=== PATIENT | female | born 1950 | race Caucasian/White ===

== ENCOUNTER 2016-06-23 11:17 | Emergency (ER) | payer BC, MEDICAID ==
[~2016-06-23] VITALS: Ht 149.9 cm; Wt 60.0 kg
[2016-06-23 12:45] LABS: CHLORIDE 107 mEq/L (98-107); INDEX HEMOLYSI 1 (1-3); INDEX ICTERIC 1 (1-4); INDEX LIPEMIC 1 (1-3)
[2016-06-23 12:50] LABS: ALBUMIN 3.9 g/dL (3.4-5.0); CALCIUM 8.8 mg/dL (8.5-10.1); UREA NITROGEN BLOOD 16 mg/dL (7-21)
[2016-06-23 12:56] LABS: ALANINE AMINOTRANSFERASE 48 IU/L (13-61); ANION GAP 12; CARBON DIOXIDE 26 mEq/L (21-32); eGFR > 60 mL/min (>60)
[2016-06-23] MEDS ORDERED: ACYCLOVIR 400 MG TABLET PO ONE (13:00)
[2016-06-23] MEDS ORDERED: PREDNISONE 20MG TABLET PO ONE (13:00)
[2016-06-23 13:07] LABS: BASOPHILS % 0.4 % (0.0-2.0); EOSINOPHILS % 1.8 % (0.0-5.0); HEMATOCRIT. 39.9 % (36.0-48.0); HEMOGLOBIN. 13.7 g/dL (12.0-16.0); LYMPHOCYTES % 31.4 % (20.0-50.0); MEAN CORPUSCULAR HEMOGLOBIN 32.5 pg (28.0-32.0); MEAN CORPUSCULAR HGB CONC 34.3 g/dL (31.0-37.0); MEAN CORPUSCULAR VOLUME 94.8 fL (81.0-99.0); MEAN PLATELET VOLUME 9.3 fl (7.4-10.4); MONOCYTES % 7.8 % (2.0-8.0); NEUTROPHILS % 58.6 % (40.0-76.0); PLATELET 236 x1000/uL (130-400); RED BLOOD CELL COUNT 4.21 mill/uL (4.2-5.4); RED CELL DISTRIBUTION WIDTH 13.4 % (11.6-14.6); WHITE BLOOD COUNT 7.1 x1000/uL (4.5-11.0)
[2016-06-23 14:28] VITALS: BP 131/73
== END 2016-06-23 14:29 | disposition home or self-care (01) ==
LOC: ER 13:00
DX: G51.0 Bell's palsy (principal); F17.200 Nicotine dependence, unspecified, uncomplicated; Z88.0 Allergy status to penicillin
CPT/HCPCS: 36415; 70450; 80053; 85025; 85651; 99285; J7512